=== PATIENT | female | born 1960 | race Caucasian/White ===

== ENCOUNTER 2025-05-05 20:42 | Emergency (ER) | payer MEDICARE, BC ==
[~2025-05-05] VITALS: Ht 152.4 cm; Wt 48.1 kg
[2025-05-05 21:02] LABS: PLATELET COUNT (AUTO) 324 K/uL (179-408); RED BLOOD CELL COUNT(AUTO) 4.87 MIL/uL (3.63-4.92); RED CELL DISTRIBUTION WIDTH 13.7 % (12.3-17.7); WHITE BLOOD COUNT (AUTO) 6.6 K/uL (3.8-11.8)
[2025-05-05] MEDS ORDERED: LORAZEPAM 2 MG/1 ML VIAL ONE (21:20)
[2025-05-05] MEDS: LORAZEPAM 2 MG/1 ML VIAL IV ONE (21:21)
[2025-05-05 21:24] LABS: ASPARTATE AMINOTRANSFERASE 13 U/L (15-37); CREATININE 0.7 mg/dL (0.6-1.3); SODIUM SERUM 144 mmol/L (136-145); TOTAL PROTEIN, SERUM 6.7 g/dL (6.4-8.2); UREA NITROGEN, BLOOD 14 mg/dL (7-18)
[2025-05-05 23:00] VITALS: BP 117/62
[2025-05-05 23:42] VITALS: BP 118/72; TEMP 98; O2SAT 98
== END 2025-05-05 23:40 | disposition home or self-care (01) ==
LOC: ER 20:48
DX: R07.89 Other chest pain (principal); G20.A1 Parkinson's disease without dyskinesia, without mention of fluctuations; Z88.8 Allergy status to other drugs, medicaments and biological substances; Z91.013 Allergy to seafood
CPT/HCPCS: 99285; 96374; 71045; 80076; 80048; 83880; 85025; 85379; 85730; 84484 ×2; 36415; 93005 ×2; J2060; A4606; A4663